=== PATIENT | female | born 1995 | race American Indian/Alaskan Native ===

== ENCOUNTER 2017-05-20 21:41 | Emergency (ER) | payer OTHER ==
[2017-05-20 21:41] VITALS: BMI 30.9
[2017-05-20] MEDS ORDERED: Sodium Chloride 0.9% 1,000 ML IV STA (22:25)
[2017-05-20 23:03] LABS: BASO # 0.02 K/mm3 (0.0-2.0); BASO % 0.3 % (0.0-3.0); EOS % 0.2 % (1.5-5.0); GRAN # 4.33 (1.4-6.5); GRAN % 67.1 % (50.0-68.0); HEMOGLOBIN 12.9 g/dL (12.0-16.0); LYMPH # 1.5 (1.2-3.4); LYMPH % 23.4 % (22.0-35.0); MEAN CELL VOLUME 83.5 fl (80.0-105.0); MEAN CORPUSCULAR HGB CONC 33.5 g/dl (31.0-37.0); MEAN PLATELET VOLUME 9.3 fl (7.0-11.0); MONO # 0.6 (0.1-0.6); RBC 4.61 10^6/uL (3.5-6.1); RED CELL DISTRIBUTION WIDTH 13.3 % (11.5-14.5); WHITE BLOOD COUNT 6.5 10^3/ul (4.5-11.0)
[2017-05-20 23:06] LABS: URINE BILIRUBIN NEGATIVE (NEGATIVE); URINE BLOOD LARGE (NEGATIVE); URINE GLUCOSE (UA) NEGATIVE (NEGATIVE); URINE LEUKOCYTE ESTERASE NEGATIVE Leu/uL (NEGATIVE); URINE NITRATE NEGATIVE (NEGATIVE); URINE PROTEIN TRACE mg/dL (<30 mg/dL); URINE UROBILINOGEN 0.2 E.U./dL (<1 E.U./dL)
[2017-05-20 23:10] LABS: ALB/GLOB RATIO 1.2 (1.1-1.8); ALBUMIN 4.1 g/dL (3.0-4.8); ALT/SGPT 35 U/L (7-56); AST/SGOT 27 U/L (14-36); BLOOD UREA NITROGEN 6 mg/dL (7-21); CALCIUM 9.7 mg/dL (8.4-10.5); GFR AFRICAN-AMERICAN > 60; GFR NON-AFRICAN AMERICAN > 60; LIPASE 94 U/L (23-300)
[2017-05-20 23:11] LABS: INR 1.22 (0.93-1.08); PARTIAL THROMBOPLASTIN TIME 27.9 Seconds (25.1-36.5); PROTHROMBIN TIME 13.4 SECONDS (9.4-12.5)
--- NOTE | 2017-05-20 23:11 | ED PDOC ---
Arrival/HPI <Gab Bella - Last Filed: 05/21/17 00:05> - General Historian: Patient <Anu Mackenzie PA-C - Last Filed: 05/21/17 00:30> - General Chief Complaint: Flu-like Symptoms Time Seen by Provider: 05/20/17 22:03 - History of Present Illness Narrative History of Present Illness (Text): 05/20/17 23:07 21 yo F w/ PMH of asthma and PE (due to taking OCPs) presents c/o URI symptoms, headache, abdominal pain and diarrhea x 2 days. Reports taking motrin earlier today with mild improvement. Denies any fever, chills, N/V, recent travel, recent antibiotic use, urinary symptoms, rash, h/o of any abdominal surgeries. PMD Yeni (Anu Mackenzie PA-C) Past Medical History - Provider Review Nursing Documentation Reviewed: Yes - Infectious Disease Hx of Infectious Diseases: None - Tetanus Immunization Tetanus Immunization: Up to Date - Cardiac Hx Cardiac Disorders: No - Pulmonary Hx Asthma: Yes Hx Pulmonary Embolism: Yes - Neurological Hx Neurological Disorder: No - HEENT Hx HEENT Disorder: No - Renal Hx Renal Disorder: No - Endocrine/Metabolic Hx Endocrine Disorders: No - Hematological/Oncological Hx Blood Disorders: No - Integumentary Hx Dermatological Disorder: No - Musculoskeletal/Rheumatological Hx Musculoskeletal Disorders: No Hx Falls: No - Gastrointestinal Hx Gastrointestinal Disorders: No - Genitourinary/Gynecological Hx Genitourinary Disorders: No - Psychiatric Hx Depression: No Hx Substance Use: No - Past Surgical History Past Surgical History: No Previous - Surgical History Other/Comment: Cystectomy Jan 2017 - Anesthesia Hx Anesthesia: No Hx Anesthesia Reactions: No Hx Malignant Hyperthermia: No - Suicidal Assessment Feels Threatened In Home Enviroment: No <Anu Mackenzie PA-C - Last Filed: 05/21/17 00:30> Family/Social History - Physician Review Nursing Documentation Reviewed: Yes Family/Social History: Unknown Family HX Smoking Status: Never Smoked Hx Alcohol Use: Yes Frequency of alcohol use: Socially Hx Substance Use: No <Anu Mackenzie PA-C - Last Filed: 05/21/17 00:30> Allergies/Home Meds <Gab Bella - Last Filed: 05/21/17 00:05> <Anu Mackenzie PA-C - Last Filed: 05/21/17 00:30> Allergies/Adverse Reactions: Allergies seafood Allergy (Uncoded 01/16/17 15:18) SWELLING Review of Systems - Review of Systems Constitutional: absent: Fatigue, Weight Change, Fevers ENT: Rhinorrhea. absent: Sore Throat, Sinus Congestion Respiratory: Cough. absent: SOB, Sputum Cardiovascular: absent: Chest Pain, Palpitations, Edema Gastrointestinal: Abdominal Pain, Diarrhea. absent: Nausea, Vomiting, Appetite Changes Genitourinary Female: absent: Dysuria, Frequency, Hematuria Musculoskeletal: absent: Arthralgias, Back Pain, Neck Pain Skin: absent: Rash, Pruritis, Skin Lesions <Anu Mackenzie PA-C - Last Filed: 05/21/17 00:30> Physical Exam <Gab Bella - Last Filed: 05/21/17 00:05> <Anu Mackenzie PA-C - Last Filed: 05/21/17 00:30> - Physical Exam Narrative Physical Exam (Text): 05/20/17 23:11 GENERAL APPEARANCE: Patient is awake, alert, oriented x 3, in no acute distress. SKIN: Warm, dry; (-) cyanosis, (-) rash. (-) Decubitus Ulcer EYES: (-) conjunctival pallor, (-) scleral icterus, (-) conjunctival hemorrhage. ENMT: Mucous membranes moist. TMs: (-) erythema. Airway patent: (-) stridor. Pharynx: (-) erythema, (-) exudate. NECK: (-) tenderness, (-) stiffness, (-) meningismus, (-) lymphadenopathy. CHEST AND RESPIRATORY: (-) accessory muscle use. Lungs: (-) rales, (-) rhonchi, (-) wheezes, (-) rub; breath sounds equal bilaterally. HEART AND CARDIOVASCULAR: (-) irregularity; (-) murmur, (-) gallop, (-) rub. ABDOMEN AND GI: Soft; (-) tenderness, (-) guarding; (-) organomegaly; (-) mass ; (-) CVA tenderness. EXTREMITIES: (-) deformity; (-) cellulitis, (-) lymphangitis; (-) subungual hemorrhage; (-) edema. NEURO AND PSYCH: Mental status as above; (-) focal findings. (Anu Mackenzie PA-C) Vital Signs Temp Pulse Resp BP Pulse Ox 05/20/17 23:51 87 17 101/68 98 05/20/17 22:01 99 F 97 H 18 118/72 97 05/20/17 21:55 99 F 97 H 18 118/72 97 Medical Decision Making <Gab Bella - Last Filed: 05/21/17 00:05> <Anu Mackenzie PA-C - Last Filed: 05/21/17 00:30> ED Course and Treatment: 05/20/17 23:10 21 yo F w/ PMH of asthma and PE (due to taking OCPs) presents c/o URI symptoms, headache, abdominal pain and diarrhea x 2 days. Plan: -- Labs -- IV fluids -- Urinalysis -- CXR -- Reglan / Toradol -- Reassess and disposition Labs reviewed and are wnl. CXR : NAD, as read by DALJIT. On re-evaluation, patient reports significant improvement of her headache and abdominal pain. Reports no abdominal pain, nausea or any other symptoms at this time. Patient remains AAOx3 in no acute distress. Lungs CTA, cardiac RRR, abdomen soft, (-) tenderness, (-) guarding, repeat neuro exam shows no focal findings. (Gurdeep GALVAN,Anu Sinha) - Lab Interpretations Lab Results: 05/20/17 22:40 05/20/17 22:40 Lab Results 05/20/17 22:40: PT 13.4 H, INR 1.22 H, APTT 27.9 05/20/17 22:40: WBC 6.5, RBC 4.61, Hgb 12.9, Hct 38.5, MCV 83.5, MCH 28.0, MCHC 33.5, RDW 13.3, Plt Count 248, MPV 9.3, Gran % 67.1, Lymph % (Auto) 23.4, Twiggs % (Auto) 9.0 H, Eos % (Auto) 0.2 L, Baso % (Auto) 0.3, Gran # 4.33, Lymph # 1.5 , Twiggs # 0.6, Eos # 0.0, Baso # 0.02 05/20/17 22:40: Sodium 138, Potassium 4.2, Chloride 101, Carbon Dioxide 26, Anion Gap 14, BUN 6 L, Creatinine 0.6 L, Est GFR ( Amer) > 60, Est GFR ( Non-Af Amer) > 60, Random Glucose 89, Calcium 9.7, Total Bilirubin 0.3, AST 27, ALT 35, Alkaline Phosphatase 63, Total Protein 7.5, Albumin 4.1, Globulin 3.4, Albumin/Globulin Ratio 1.2, Lipase 94 05/20/17 22:10: Urine Color Yellow, Urine Appearance Sl cloudy, Urine pH 6.0, Ur Specific Dunbar >= 1.030, Urine Protein Trace H, Urine Glucose (UA) Negative , Urine Ketones Negative, Urine Blood Large H, Urine Nitrate Negative, Urine Bilirubin Negative, Urine Urobilinogen 0.2, Ur Leukocyte Esterase Negative, Urine RBC 1 - 3, Urine WBC 0 - 2, Ur Epithelial Cells 4 - 5, Urine Bacteria Few - RAD Interpretation Radiology Orders: 05/20/17 22:25 CHEST PORTABLE [RAD] Stat - Medication Orders Current Medication Orders: Discontinued Medications Sodium Chloride (Sodium Chloride 0.9%) 1,000 mls @ 1,000 mls/hr IV .Q1H STA Stop: 05/20/17 23:24 Last Admin: 05/20/17 22:42 Dose: 1,000 mls/hr eMAR Start Stop Document 05/20/17 22:42 IT (Rec: 05/20/17 22:42 IT [id number]) Intravenous Solution Start Date 05/20/17 Start Time 22:42 End Date 05/20/17 End time 23:42 Total Infusion Time 60 Ketorolac Tromethamine (Toradol) 30 mg IVP STAT STA Stop: 05/20/17 22:26 Last Admin: 05/20/17 22:42 Dose: 30 mg MAR Pain Assessment Document 05/20/17 22:42 IT (Rec: 05/20/17 22:42 IT [id number]) Pain Reassessment Is this a pain reassessment? No Sleep Is patient sleeping during reassessment? No Presence of Pain Presence of Pain Yes Pain Scale Used Pain Scale Used Numeric IVP Administration Document 05/20/17 22:42 IT (Rec: 05/20/17 22:42 IT [id number]) Charges for Administration # of IVP Administrations 1 Metoclopramide HCl (Reglan) 10 mg IVP STAT STA Stop: 05/20/17 22:26 Last Admin: 05/20/17 22:42 Dose: 10 mg IVP Administration Document 05/20/17 22:42 IT (Rec: 05/20/17 22:42 IT [id number]) Charges for Administration # of IVP Administrations 1 - PA / CERTIFIED PERSONAL TRAINER / Resident Statement ANGEL has reviewed & agrees with the documentation as recorded. <Gab Bella - Last Filed: 05/21/17 00:05> - PA / CERTIFIED PERSONAL TRAINER / Resident Statement ANGEL has reviewed & agrees with the documentation as recorded. <Anu Mackenzie PA-C - Last Filed: 05/21/17 00:30> Disposition/Present on Arrival <Gab Bella - Last Filed: 05/21/17 00:05> - Present on Arrival Any Indicators Present on Arrival: No History of DVT/PE: No History of Uncontrolled Diabetes: No Urinary Catheter: No History of Decub. Ulcer: No History Surgical Site Infection Following: None - Disposition Have Diagnosis and Disposition been Completed?: Yes Disposition Time: 00:10 Patient Plan: Discharge <Anu Mackenzie PA-C - Last Filed: 05/21/17 00:30> - Disposition Diagnosis: Cough, Abdominal pain, Viral illness Disposition: HOME/ ROUTINE Condition: STABLE Discharge Instructions (ExitCare): Viral Syndrome (ED), Acute Abdominal Pain ( ED) Print Language: TAMAZIGHT Prescriptions: Famotidine [Pepcid] 40 mg PO DAILY #20 tablet Metoclopramide HCl [Reglan] 10 mg PO QID PRN #20 tablet PRN Reason: Headache Referrals: Pascual Jaime MD [Primary Care Provider] - Follow up with primary Forms: [employer] (Kiswahili), WORK NOTE
[2017-05-20 23:33] LABS: URINE APPEARANCE SL CLOUDY (CLEAR); URINE COLOR YELLOW (YELLOW)
[2017-05-20 23:38] LABS: URINE BACTERIA FEW (NEG); URINE WBC 0 - 2 /hpf (0-6)
[2017-05-20 23:53] VITALS: RESP 17; O2SAT 98
[2017-05-21 00:37] VITALS: BP 110/78; PULSE 82; TEMP 98.9
--- NOTE | 2017-05-21 07:57 | RAD ---
HISTORY: abd pain COMPARISON: Chest radiographs 07/16/2016. FINDINGS: LUNGS: No active pulmonary disease. PLEURA: No significant pleural effusion identified, no pneumothorax apparent. CARDIOVASCULAR: Normal. OSSEOUS STRUCTURES: No significant abnormalities. VISUALIZED UPPER ABDOMEN: Normal. OTHER FINDINGS: None. IMPRESSION: No interval acute cardiopulmonary disease appreciated.
== END 2017-05-21 00:37 | disposition home or self-care (01) ==
LOC: ED 21:41
DX: B34.9 Viral infection, unspecified (principal); R05 Cough; R10.9 Unspecified abdominal pain
CPT/HCPCS: 71010; 80053; 81001; 83690; 85025; 85610; 85730; 87086; 96361; 96374; 96375; 99284; J1885; J2765; J7040

== ENCOUNTER 2017-09-25 15:40 | Emergency (ER) | payer OTHER ==
[2017-09-25 15:40] VITALS: BMI 30.9
[2017-09-25 16:02] VITALS: BP 123/69; TEMP 98.7
--- NOTE | 2017-09-25 16:06 | ED PDOC ---
Arrival/HPI - General Chief Complaint: ENT Problem Time Seen by Provider: 09/25/17 15:44 Historian: Patient - History of Present Illness Narrative History of Present Illness (Text): 09/25/17 16:02 21 y/o female, pmh including PE, nkda, c/o nasal congestion and sinus pressure x 3 days with no fall or trauma. Nasal congestion with runny nose, admits sinus pressure when bending forward, no neck stiffness or rash, no fever or chills, no night sweat, no change in vision or bodyache, no palpitation, no other medical or psychological complaints. Past Medical History - Provider Review Nursing Documentation Reviewed: Yes - Infectious Disease Hx of Infectious Diseases: None - Tetanus Immunization Tetanus Immunization: Up to Date - Cardiac Hx Cardiac Disorders: No - Pulmonary Hx Respiratory Disorders: Yes Hx Asthma: Yes Hx Pulmonary Embolism: Yes - Neurological Hx Neurological Disorder: No - HEENT Hx HEENT Disorder: No - Renal Hx Renal Disorder: No - Endocrine/Metabolic Hx Endocrine Disorders: No - Hematological/Oncological Hx Blood Disorders: No - Integumentary Hx Dermatological Disorder: No - Musculoskeletal/Rheumatological Hx Musculoskeletal Disorders: No Hx Falls: No - Gastrointestinal Hx Gastrointestinal Disorders: No - Genitourinary/Gynecological Hx Genitourinary Disorders: No - Psychiatric Hx Depression: No Hx Substance Use: No - Past Surgical History Past Surgical History: No Previous - Surgical History Other/Comment: REMOVAL OF OVARIAN CYST - Anesthesia Hx Anesthesia: No Hx Anesthesia Reactions: No Hx Malignant Hyperthermia: No - Suicidal Assessment Feels Threatened In Home Enviroment: No Family/Social History - Physician Review Nursing Documentation Reviewed: Yes Family/Social History: Unknown Family HX Smoking Status: Never Smoked Hx Alcohol Use: Yes Hx Substance Use: No Allergies/Home Meds Allergies/Adverse Reactions: Allergies seafood Allergy (Uncoded 09/25/17 15:58) SWELLING Review of Systems - Review of Systems Constitutional: absent: Fatigue, Fevers Eyes: absent: Vision Changes ENT: Rhinorrhea, Sinus Congestion. absent: Hearing Changes Respiratory: absent: SOB, Cough, Sputum Cardiovascular: Chest Pain Gastrointestinal: absent: Abdominal Pain, Nausea, Vomiting Genitourinary Female: absent: Dysuria Musculoskeletal: absent: Arthralgias, Back Pain Skin: absent: Rash, Pruritis Neurological: absent: Headache, Dizziness Psychiatric: absent: Anxiety, Depression, Suicidal Ideation Physical Exam Vital Signs Reviewed: Yes Vital Signs Temp Pulse Resp BP Pulse Ox 09/25/17 15:59 98.7 F 75 16 123/69 100 Temperature: Afebrile Blood Pressure: Normal Pulse: Regular Respiratory Rate: Normal Appearance: Positive for: Well-Appearing, Non-Toxic, Comfortable Pain Distress: Mild Mental Status: Positive for: Alert and Oriented X 3 - Systems Exam Head: Present: Atraumatic, Normocephalic, Other (+ttp on the lt. maxillary sinus region with pain aggravated by bending forward) Pupils: Present: PERRL, Other (no periorbital swelling, no painful movement of the eyes. ) Extroacular Muscles: Present: EOMI Conjunctiva: Present: Normal Ears: Present: NORMAL TM, Normal Canal. No: Erythema Mouth: Present: Moist Mucous Membranes Pharnyx: No: ERYTHEMA, EXUDATE, TONSILS ENLARGED Nose (External): Present: Atraumatic. No: Abrasion, Contusion, Laceration Nose (Internal): Present: Normal Inspection, No Active Bleeding, Rhinorrhea. No : Septal Hematoma, Epistaxis Neck: Present: Normal Range of Motion, Trachea Midline. No: MIDLINE TENDERNESS , Paraspinal Tenderness, Lymphadenopathy Respiratory/Chest: Present: Clear to Auscultation, Good Air Exchange. No: Respiratory Distress, Accessory Muscle Use, Wheezes, Decreased Breath Sounds, Retracting, Rhonchi, Tachypneic Cardiovascular: Present: Regular Rate and Rhythm, Normal S1, S2. No: Murmurs Abdomen: No: Tenderness, Distention, Peritoneal Signs, Rebound, Guarding Back: Present: Normal Inspection Upper Extremity: Present: Normal Inspection. No: Cyanosis, Edema Lower Extremity: Present: Normal Inspection. No: Edema Neurological: Present: GCS=15, Speech Normal, Motor Func Grossly Intact, Gait Normal, Memory Normal Skin: Present: Warm, Dry, Normal Color. No: Rashes Psychiatric: Present: Alert, Oriented x 3, Normal Insight, Normal Concentration Medical Decision Making ED Course and Treatment: 09/25/17 16:05 -Urine hcg. -Discharge home with augmentin, flonase, xyzall, tylenol, bed rest, follow up with your own pmd and ENT within 2 days, return to the ER for any new or worsening signs or symptoms. - PA / EXPLOSIVE OPERATOR BOMB / Resident Statement /DO has reviewed & agrees with the documentation as recorded. Disposition/Present on Arrival - Present on Arrival Any Indicators Present on Arrival: No History of DVT/PE: No History of Uncontrolled Diabetes: No Urinary Catheter: No History of Decub. Ulcer: No History Surgical Site Infection Following: None - Disposition Have Diagnosis and Disposition been Completed?: Yes Diagnosis: Sinusitis Disposition: HOME/ ROUTINE Disposition Time: 16:07 Patient Plan: Discharge Patient Problems: Current Active Problems Problem Status Onset Sinusitis Acute Condition: GOOD Discharge Instructions (ExitCare): Sinusitis, Adult (DC) Additional Instructions: -Discharge home with augmentin, flonase, xyzall, tylenol, bed rest, follow up with your own pmd and ENT within 2 days, return to the ER for any new or worsening signs or symptoms. Prescriptions: Acetaminophen 2 tab PO QID #30 tab Amoxicillin/Clavulanate [Augmentin 875 MG-125 MG] 1 tab PO BID #14 tab Fluticasone Propionate [Flonase] 1 actuation NS DAILY #1 bottle Levocetirizine Dihydrochloride [Xyzal] 5 mg PO DAILY PRN #14 tablet PRN Reason: Other Referrals: Florencio Kelley DO [Staff Provider] - Follow up with primary Forms: WORK NOTE
[2017-09-25 16:33] VITALS: PULSE 84; RESP 16; O2SAT 98
== END 2017-09-25 16:32 | disposition home or self-care (01) ==
LOC: ED 15:40
DX: J32.9 Chronic sinusitis, unspecified (principal)

== ENCOUNTER 2017-12-07 12:02 | Emergency (ER) | payer OTHER ==
[2017-12-07 12:17] VITALS: RESP 18; TEMP 98.4; BMI 32.9
--- NOTE | 2017-12-07 12:33 | ED PDOC ---
Arrival/HPI <Sergei Peng - Last Filed: 12/07/17 14:21> - History of Present Illness Time/Duration: < week Symptom Onset: Gradual Activities at Onset: Light Context: Home <Lakshmi Allen - Last Filed: 12/09/17 22:25> - General Chief Complaint: Cough, Cold, Congestion Time Seen by Provider: 12/07/17 12:08 - History of Present Illness Narrative History of Present Illness (Text): 12/07/17 12:30 This is a 21 year old female with PMH of asthma and PE in 2013 due to OCP presenting to the ER today for three day history of CP, SOB, dry cough, sinus congestion, and runny nose. Patient states she has had similar symptoms in past and is concerned about a PE. She denies fevers, chills, vomiting, abdominal pain , recent travel, recent sickness, and sick contacts. She is currently on no medications. LMP was November 04. PMD is Dr. Jaime. (Lakshmi Allen) Past Medical History - Provider Review Nursing Documentation Reviewed: Yes - Infectious Disease Hx of Infectious Diseases: None - Tetanus Immunization Tetanus Immunization: Up to Date - Cardiac Hx Cardiac Disorders: No - Pulmonary Hx Respiratory Disorders: Yes Hx Asthma: Yes Hx Pulmonary Embolism: Yes - Neurological Hx Neurological Disorder: No - HEENT Hx HEENT Disorder: No - Renal Hx Renal Disorder: No - Endocrine/Metabolic Hx Endocrine Disorders: No - Hematological/Oncological Hx Blood Disorders: No - Integumentary Hx Dermatological Disorder: No - Musculoskeletal/Rheumatological Hx Musculoskeletal Disorders: No Hx Falls: No - Gastrointestinal Hx Gastrointestinal Disorders: No - Genitourinary/Gynecological Hx Genitourinary Disorders: No - Psychiatric Hx Depression: No Hx Substance Use: No - Past Surgical History Past Surgical History: No Previous - Surgical History Other/Comment: REMOVAL OF OVARIAN CYST - Anesthesia Hx Anesthesia: No Hx Anesthesia Reactions: No Hx Malignant Hyperthermia: No - Suicidal Assessment Feels Threatened In Home Enviroment: No <Lakshmi Allen - Last Filed: 12/09/17 22:25> Family/Social History - Physician Review Nursing Documentation Reviewed: Yes Family/Social History: Unknown Family HX Smoking Status: Never Smoked Hx Alcohol Use: Yes Frequency of alcohol use: Socially Hx Substance Use: No <Lakshmi Allen - Last Filed: 12/09/17 22:25> Allergies/Home Meds <Sergei Peng - Last Filed: 12/07/17 14:21> <Lakshmi Allen - Last Filed: 12/09/17 22:25> Allergies/Adverse Reactions: Allergies seafood Allergy (Uncoded 12/07/17 12:12) SWELLING Review of Systems - Physician Review All systems were reviewed & negative as marked: Yes - Review of Systems Constitutional: Normal. absent: Fevers Eyes: Normal. absent: Vision Changes ENT: Normal. absent: Hearing Changes Respiratory: SOB, Cough. absent: Sputum, Wheezing Cardiovascular: Chest Pain. absent: Palpitations, Edema, Calf Pain, Syncope Gastrointestinal: Normal. absent: Abdominal Pain Genitourinary Female: Normal Musculoskeletal: Normal Skin: Normal Neurological: Normal. absent: Headache Psychiatric: Normal <Lakshmi Allen - Last Filed: 12/09/17 22:25> Physical Exam Vital Signs Reviewed: Yes Temperature: Afebrile Blood Pressure: Normal Pulse: Regular Respiratory Rate: Normal Appearance: Positive for: Well-Appearing, Non-Toxic, Comfortable Pain Distress: None Mental Status: Positive for: Alert and Oriented X 3 - Systems Exam Head: Present: Atraumatic, Normocephalic, Other (sinus tenderness) Pupils: Present: PERRL Extroacular Muscles: Present: EOMI Conjunctiva: Present: Normal Mouth: Present: Moist Mucous Membranes Pharnyx: Present: Normal. No: ERYTHEMA, EXUDATE Nose (Internal): Present: Normal Inspection Neck: Present: Normal Range of Motion. No: Lymphadenopathy Respiratory/Chest: Present: Clear to Auscultation, Good Air Exchange. No: Respiratory Distress, Accessory Muscle Use, Wheezes, Decreased Breath Sounds Cardiovascular: Present: Regular Rate and Rhythm, Normal S1, S2. No: Murmurs Abdomen: No: Tenderness, Distention, Peritoneal Signs Back: Present: Normal Inspection Upper Extremity: Present: Normal Inspection. No: Cyanosis, Edema Lower Extremity: Present: Normal Inspection. No: Edema Neurological: Present: Speech Normal, Motor Func Grossly Intact, Normal Sensory Function Skin: Present: Warm, Dry, Normal Color. No: Rashes Psychiatric: Present: Alert, Normal Insight, Normal Concentration <Law Allenrasta - Last Filed: 12/09/17 22:25> Vital Signs Temp Pulse Resp BP Pulse Ox 12/07/17 14:13 89 18 116/68 98 12/07/17 12:13 98.4 F 88 18 122/86 99 Medical Decision Making - EKG Interpretation Interpreted by ED Physician: Yes <Sergei Peng - Last Filed: 12/07/17 14:21> <Lakshmi Allen - Last Filed: 12/09/17 22:25> ED Course and Treatment: 12/07/17 13:43 patient seen for typical symptoms of viral uri, no fever, chest pains exacerbated with cough and consistent with MSK pain, low clinical suspicion for PE along with negative dimer makes an acute thrombolemolic event veryt unlikely. no acute indicaton for antibiotics at this time, patient remained stable throughout Ed course and stable for dc and pcp follow up. (Sergei Peng) 12/07/17 12:36 Impression: This is a 21 year old female with PMH of asthma and PE in 2013 due to OCP presenting to the ER today for three day history of CP, SOB, dry cough, sinus congestion, and runny nose. Differential not limited to: URI vs. bronchitis vs. PE Plan: Will check EKG, and D-dimer for concern of history of PE. Patient currently is not having chest pain or SOB. Progress: (Lakshmi Allen) - Lab Interpretations Lab Results: Lab Results 12/07/17 21:25: Urine HCG, Qual Negative 12/07/17 13:14: D-Dimer, Quantitative < 200 - EKG Interpretation EKG Interpretation (Text): 12/07/17 14:20 ekg my read: nsr at 70 bpm, nml qrs, nml axis, no acute sttw abn (Sergei Peng) - PA / MAINTENANCE DEPARTMENT MANAGER / Resident Statement MD/DO has reviewed & agrees with the documentation as recorded. MD/DO has examined the patient and agrees with the treatment plan. <Lakshmi Allen - Last Filed: 12/09/17 22:25> Disposition/Present on Arrival - Present on Arrival Any Indicators Present on Arrival: No - Disposition Have Diagnosis and Disposition been Completed?: Yes Disposition Time: 13:45 Patient Plan: Discharge <Sergei Peng - Last Filed: 12/07/17 14:21> - Present on Arrival Any Indicators Present on Arrival: Yes History of DVT/PE: Yes History of Uncontrolled Diabetes: No Urinary Catheter: No History of Decub. Ulcer: No History Surgical Site Infection Following: None - Disposition Have Diagnosis and Disposition been Completed?: Yes Patient Plan: Discharge <Lakshmi Allen - Last Filed: 12/09/17 22:25> - Disposition Diagnosis: Viral URI with cough, Chest wall pain Disposition: HOME/ ROUTINE Condition: STABLE Discharge Instructions (ExitCare): Viral Upper Respiratory Infection, Adult (DC ), Costochondritis (DC), Chest Pain (ED) Print Language: ARMENIAN Additional Instructions: stay well hydrated (water). return for any new or worsening symptoms. you may take an antihistamine for a runny nose. you may take a decongestant such as pseudophed for nasal congestion. Prescriptions: Loratadine [Claritin] 10 mg PO DAILY #7 tab Forms: [employer] (Wolof), WORK NOTE
[2017-12-07 14:13] VITALS: BP 116/68; PULSE 89; O2SAT 98
--- NOTE | 2017-12-07 18:52 | CARD ---
APPROVED REPORT Date of service: 12/07/2017 EKG Measurement Heart [id number] <Conclusion> Normal sinus rhythm with sinus arrhythmia Normal ECG
== END 2017-12-07 14:30 | disposition home or self-care (01) ==
LOC: ED 12:02
DX: J06.9 Acute upper respiratory infection, unspecified (principal); R07.89 Other chest pain; J45.909 Unspecified asthma, uncomplicated; Z86.711 Personal history of pulmonary embolism